=== PATIENT | female | born 2000 | race Caucasian/White ===

== ENCOUNTER 2019-03-11 09:34 | Emergency (ER) | payer SELFPAY ==
[~2019-03-11] VITALS: Ht 165.1 cm; Wt 68.0 kg
--- NOTE | 2019-03-11 09:37 | NUR ---
BIB SELF. AAO X4 C/O FREQUENCY, URGENCY, HESITANCY, AND BLOOD NOTED UPON WIPING X 3 DAYS AWOKE TODAY WITH LOWER ABDOMINAL PAIN RADIATING TO MID LOWER BACK 8/10 PAIN. PT DENIES FEVER, N/V/D, SOB. PT STATES SHE TOOK AZO OTC UTI MEDS WITH NO RELIEF. ER TO EVALUATE PT.
--- NOTE | 2019-03-11 09:37 | NUR ---
PT TO ER BED 3
--- NOTE | 2019-03-11 09:37 | NUR ---
ptambulated to er bed 03
[2019-03-11 09:43] VITALS: BP 117/66
--- NOTE | 2019-03-11 10:09 | NUR ---
DR MCMILLAN AT BEDSIDE FOR PT EVALUATION
[2019-03-11 10:21] VITALS: BP 118/68
== END 2019-03-11 15:47 | disposition home or self-care (01) ==
LOC: MED 09:34
DX: N39.0 Urinary tract infection, site not specified (principal)
CPT/HCPCS: 81002; 81025; 99283

== ENCOUNTER 2019-06-04 20:40 | Emergency (ER) | payer MEDICAID ==
[~2019-06-04] VITALS: Ht 165.1 cm; Wt 82.6 kg
[2019-06-04 20:51] VITALS: BP 119/85
--- NOTE | 2019-06-04 20:54 | NUR ---
PT WHEEL CHAIR ASSISTED TO BED 12.
[2019-06-04] MEDS ORDERED: KETOROLAC 60 MG/2 ML VIAL IM ONE (21:00)
--- NOTE | 2019-06-04 21:03 | NUR ---
XRAY AT BEDSIDE
--- NOTE | 2019-06-04 21:10 | NUR ---
PT CAME TO ER C/O OF RIGHT KNEE PAIN SINCE TODAY. PT IS TEARFUL AND CRYING IN PAIN. PT STATED "I WAS REACHING UP AND I TWISTED, AND I HEARD A "POP" IN MY KNEE AND I FELL." PAIN LEVEL 10/10 WITH MOVEMENT AND RADIATES TO HER TOES. PT HAS SWELLING TO LEFT KNEE. NKA. NO MED HX. SAFETY MEASURES IN PLACE. WAITING FOR ERMD TO EVALUATE PT.
[2019-06-04] MEDS ORDERED: MORPHINE SULFATE 4 MG/ML SYR IM ONE (22:00)
--- NOTE | 2019-06-04 22:08 | NUR ---
KNEE IMMOBILIZER PLACED ON PT R KNEE AND FITTED TO PT HEIGHT. +CSM
--- NOTE | 2019-06-04 22:10 | NUR ---
PT GIVEN INSTRUCTION ON PROPER USE OF CRUTCHES. PT CRUTCHES FITTED TO PT HEIGHT AND ARM LENGTH. PT GIVEN INSTRUCTION ON PROPER USE OF CRUTCHES, INCLUDING SITTING TO STANDING AND VICE VERSA, AND WALKING. PT DEMONSTRATED SAFE USE FOR APPROXIMATELY 40 FEET, PT STATED SHE FELT COMFORTABLE WITH USE.
--- NOTE | 2019-06-04 22:19 | NUR ---
Patient discharged with v/s stable. Written and verbal after care instructions given and explained. Pt educated to rest, ice, and elevate extremity. Patient alert, oriented and verbalized understanding of instructions. Ambulatory with crutches and steady gait. All questions addressed prior to discharge. ID band removed. Patient advised to follow up with PMD. Rx of MOTRIN AND NORCO WAS given. Patient educated on indication of medication including possible reaction and side effects. Opportunity to ask questions provided and answered.
[2019-06-04 22:26] VITALS: BP 119/85
== END 2019-06-04 22:19 | disposition home or self-care (01) ==
LOC: MED 20:40
DX: S83.91XA Sprain of unspecified site of right knee, initial encounter (principal); X50.1XXA Overexertion from prolonged static or awkward postures, initial encounter; Y93.01 Activity, walking, marching and hiking; Y92.89 Other specified places as the place of occurrence of the external cause; Y99.8 Other external cause status
CPT/HCPCS: 29505; 73562; 96372; 99283; J1885; J2270; Q0092

== ENCOUNTER 2020-08-08 18:00 | Emergency (ER) | payer MEDICAID ==
[~2020-08-08] VITALS: Ht 165.1 cm; Wt 70.3 kg
[2020-08-08 18:07] VITALS: BP 133/79
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
[2020-08-08] MEDS ORDERED: ONDANSETRON 4 MG ODT PO ONE (19:00)
[2020-08-08] MEDS ORDERED: LIDOCAINE MPF 1% 10 MG/ML VIAL INJ ONE (19:00)
[2020-08-08] MEDS ORDERED: KETOROLAC 30 MG/ML VIAL IM ONE (19:00)
[2020-08-08 19:03] VITALS: BP 130/75
--- NOTE | 2020-08-08 19:30 | NUR ---
REPORT RECEIVED FROM YEIMY ROBLES DAYSHIFT NURSE AT BEDSIDE FOR CONTINUITY OF CARE, PT IN STABLE CONDITION. NO C/O VOICED BY PT.
--- NOTE | 2020-08-08 19:31 | NUR ---
Pt report given to MARGARET Solis. Transfer of care at this time.
[2020-08-08] MEDS ORDERED: BACITRACIN OINT 500 UNITS/GM PKT TP ONE (19:45)
--- NOTE | 2020-08-08 19:58 | NUR ---
BACITRACIN WAS PLACED ON PTS FINGER, NON ADHERENT GAUZE WAS PLACED TO COVER WOUND AND ROLL GAUZE TO WRAP WOUND. PTS PMSC WNL.
--- NOTE | 2020-08-08 20:14 | NUR ---
Patient discharged with v/s stable. Written and verbal after care instructions given and explained. Patient alert, oriented and verbalized understanding of instructions. Ambulatory with steady gait. All questions addressed prior to discharge. ID band removed. Patient advised to follow up with PMD. Rx of naprosyn and bacitracin given. Patient educated on indication of medication including possible reaction and side effects. Opportunity to ask questions provided and answered.
--- NOTE | 2020-08-08 20:15 | NUR ---
Note claudia in EDM - 08/09/20 at 0404 by JONI PT DICHARGED WITH SCRIPTS OF BACITRACIN AND NAPROSN. FINGER BANDGED UP WITH DRESSINGS INTACT. PT PROVIDED EDUCATION REGARDING DX, AND ORDERED SCRIPTS. PT VERBELIZED UNDERSTANING. PT LEFT WITH BELONGINGS IN HAND AND WRIST BAND OFF.
== END 2020-08-08 20:14 | disposition home or self-care (01) ==
LOC: MED 18:00
DX: S61.303A Unspecified open wound of left middle finger with damage to nail, initial encounter (principal); R11.2 Nausea with vomiting, unspecified; X58.XXXA Exposure to other specified factors, initial encounter; Y93.89 Activity, other specified; Y92.89 Other specified places as the place of occurrence of the external cause; Y99.8 Other external cause status
CPT/HCPCS: 11730; 96372; 99284; J1885; J2001; Q0162; 99283

== ENCOUNTER 2021-02-12 13:11 | Inpatient (IN) | payer OTHER, SELFPAY ==
[~2021-02-12] VITALS: Ht 165.1 cm; Wt 67.1 kg
[2021-02-12 13:20] VITALS: BP 105/56
--- NOTE | 2021-02-12 13:26 | NUR ---
Patient ambulated to bed 4. RN evaluating the patient at bedside.
--- NOTE | 2021-02-12 14:20 | NUR ---
20 YEAR OLD FEMALE C/C OF ABDOMINAL PAIN AND BACK PAIN X 3 DAYS, DENIES DOING ANYTHING THAT CAUSED THE PAIN, VOMITED X 1 TIME BEFORE COMING INTO THE HOSPITAL. A&OX3 SPEAKING IN FULL SENTENCES, STATES THAT SHE WAS TOLD 10 WEEKS AGO THAT SHE IS PREGO, AT CLINIC SHE HAD A POSITIVE TEST 10 WEEKS AGO. DENIES SEEING OBGYN AT THIS TIME. - BLEEDING OR DISCHARGE. -SOB, -CP, -SOLIS, - DIZZINESS.
--- NOTE | 2021-02-12 14:30 | NUR ---
PT AMBULATED WITH NO ASSISTANCE TO THE BATHROOM
[2021-02-12 14:53] LABS: APPEARANCE,URINE CLEAR (CLEAR); BILIRUBIN,URINE NEGATIVE (NEGATIVE); BLOOD, URINE TRACE-I (NEGATIVE); COLOR,URINE YELLOW (YELLOW); HEMOGLOBIN 13.2 g/dL (12.0-16.0); LEUKOCYTE ESTERASE ,URINE 2+ (NEGATIVE); MEAN CORPUSCULAR HEMOGLOBIN 32 pg (27-31); MEAN CORPUSCULAR HGB CONC 34 g/dL (33-37); MEAN CORPUSCULAR VOLUME 95.4 fL (80-94); NITRITE, URINE NEGATIVE (NEGATIVE); PLATELET COUNT (AUTO) 251 K/uL (140-450); RED BLOOD CELL COUNT(AUTO) 4.09 MIL/uL (4.20-5.40); RED CELL DISTRIBUTION WIDTH 12.7 % (11.6-13.7); UGLUCOSE NEGATIVE (NEGATIVE); WHITE BLOOD COUNT (AUTO) 15.3 K/uL (4.8-10.8)
--- NOTE | 2021-02-12 15:00 | NUR ---
ULTRASOUND AT BEDSIDE
[2021-02-12 15:07] LABS: ALBUMIN 3.1 g/dL (3.4-5.0); ANION GAP 9.9 (8-16); CARBON DIOXIDE 28.8 mmol/L (21-32); CREATININE 0.4 mg/dL (0.6-1.3); POTASSIUM 3.7 mmol/L (3.5-5.1); TOTAL BILIRUBIN 0.3 mg/dL (0.0-1.0)
[2021-02-12 15:27] LABS: WBC,URINE 16-25 (MOD) /HPF (0-5)
[2021-02-12 15:40] LABS: EOSINOPHILS % (MANUAL) 1 % (0-4); LYMPHOCYTES % (MANUAL) 11 % (20-46); MONOCYTES % (MANUAL) 5 % (5-12)
--- NOTE | 2021-02-12 16:44 | NUR ---
Dr. Coles is evaluating the patient at bedside.
[2021-02-12] MEDS ORDERED: ACETAMINOPHEN 325 MG TAB PO ONE (16:50)
[2021-02-12] MEDS ORDERED: diphenhydrAMINE 50 MG/ML VIAL IVP ONE (16:50)
[2021-02-12] MEDS ORDERED: cefTRIAXone 1,000 MG VIAL ONE (17:22)
[2021-02-12] MEDS ORDERED: NACL 0.9% 1,000 ML IV ONE (17:25)
--- NOTE | 2021-02-12 19:03 | NUR ---
ADILIA AT BEDSIDE, APPROVED BY CHARGE
--- NOTE | 2021-02-12 19:20 | NUR ---
RECEIVED BEDSIDE ENDORSEMENT FROM AM SHIFT RN. PT IS AAOX4, ON ROOM AIR, BOYFRIEND AT BEDSIDE, NO DISTRESS, DENIES PAIN, AMBULATORY, SAFETY MEASURES IN PLACE, PLAN OF CARE DISCUSSED, WILL CONTINUE TO MONITOR.
[2021-02-12] MEDS: NACL 0.9% 1,000 ML IV SCH (20:31)
[2021-02-12 22:00] VITALS: BP 105/62
--- NOTE | 2021-02-12 22:00 | NUR ---
PT TRANSFERED TO THE [facility] DEPT VIA WHEELCHAIR, STABLE, TO BED 105 A. DERRELL ROBLES WAS THERE AND MET THE PATIENT.
--- NOTE | 2021-02-12 22:00 | NUR ---
ADMITTED A 20F FROM ER. CAME BY WHEELCHAIR. MED SURG PT. AWAKE,ALERT AND ORIENTED X4. AMBULATORY. WITH CC OF ABDOMINAL PAIN WITH N/V X3 DAYS. PT IS ALSO . HX: HIGH CHOLESTEROL. SKIN INTACT. WITH IVF INFUSING WELL ON THE RT AC G#18. CLEAR AND PATENT. ORIENTED TO HOSPITAL ROUTINES. FREQ ROUNDS NEEDED. BED ON LOW POSITION. CALL LIGHT WITHIN REACH. PLAN OF CARE DISCUSSED AND VERBALIZED UNDERSTANDING. SHE SAID SHE HAS ALLERGY TO NYLON WITH SWELLING AND PUS ON LIPS SEVERE REACTION. ALLERGY BAND IN PLACED. INSTRUCTED TO USE CALL LIGHT IF NEED ASSISTANCE. WILL F/U ADMIT ORDERS.
--- NOTE | 2021-02-12 22:01 | NUR ---
PT C/O RT SIDE ABDOMINAL PAIN. SHE SAID SHE LIKE THE [place] FOR PAIN IS MORE. MEDICATED ORDERED. Addendum: 02/14/21 at 0040 by Coral Banegas RN CANCEL ABOVE NOTES. WRONG DOCUMENTATION.
[2021-02-12] MEDS: HYDROcodone/APAP 5/325 MG 1 TAB TAB PO PRN (23:03)
--- NOTE | 2021-02-13 00:30 | NUR ---
MADE ROUNDS PT IS ASLEEP NO S/S FO ANY DISCOMFORT NOTED.
--- NOTE | 2021-02-13 01:30 | NUR ---
CHECKED ON PT. SLEEPING AT THIS TIME. NO S/S OF ANY DISCOMFORT.
--- NOTE | 2021-02-13 03:00 | NUR ---
MADE ROUNDS.PT IS AWAKE AND NO C/O ANY DISCOMFORT NOR PAIN NOTED.
[2021-02-13 04:00] VITALS: BP 95/52
--- NOTE | 2021-02-13 05:00 | NUR ---
CHECKED ON PT. ASLEEP. NO S/S OF ANY PAIN NOTED. WILL CONTINUE TO MONITOR.
--- NOTE | 2021-02-13 07:20 | NUR ---
ENDORSED PT IN STABLE CONDITION TO AM NURSE FOR CONTINUITY OF CARE.
--- NOTE | 2021-02-13 07:21 | NUR ---
RECEIVED PATIENT FROM NIGHT NURSE. PATIENT IN BED AWAKE, ALERT AND ORIENTED X4. RESP EVEN AND UNLABORED ON ROOM AIR. PATIENT C/O PAIN TO RIGHT FLANK, REQUESTING ADDITIONAL INFORMATION ABOUT PAIN MEDICATIONS PRIOR TO TAKING. WILL CONSULT WITH DR KRUSE AND PHARMACY. PATIENT VERBALIZED UNDERSTANDING. RAC 18G INFUSING WELL. PLAN OF CARE DISCUSSED, PATIENT VERBALIZED UNDERSTANDING. CALL LIGHT WITHIN REACH. WILL CONTINUE TO MONITOR.
[2021-02-13 08:00] VITALS: BP 103/65
[2021-02-13] MEDS: NACL 0.9% 1,000 ML IV SCH ×2 (08:43→21:30)
[2021-02-13 08:58] LABS: BASOPHILS % (AUTO) 0.3 % (0.0-2.0); EOSINOPHILS # (AUTO) 0.1 K/uL (0-0.4); EOSINOPHILS % (AUTO) 0.9 % (0.0-4.0); HEMATOCRIT 38.3 % (36-48); HEMOGLOBIN 13.1 g/dL (12.0-16.0); LYMPHOCYTES # (AUTO) 1.2 K/uL (2.5-16.5); LYMPHOCYTES % (AUTO) 10.1 % (20.5-51.1); MEAN CORPUSCULAR HEMOGLOBIN 33 pg (27-31); MEAN CORPUSCULAR HGB CONC 34 g/dL (33-37); MEAN CORPUSCULAR VOLUME 95.9 fL (80-94); MONOCYTES # (AUTO) 0.6 K/uL (0.8-1.0); MONOCYTES % (AUTO) 5.2 % (1.7-9.3); NEUTROPHILS # (AUTO) 10.2 K/uL (1.8-7.7); NEUTROPHILS % (AUTO) 83.5 % (42.2-75.2); PLATELET COUNT (AUTO) 267 K/uL (140-450); RED BLOOD CELL COUNT(AUTO) 3.99 MIL/uL (4.20-5.40); RED CELL DISTRIBUTION WIDTH 12.6 % (11.6-13.7); WHITE BLOOD COUNT (AUTO) 12.2 K/uL (4.8-10.8)
--- NOTE | 2021-02-13 09:00 | NUR ---
PATIENT IN BED AWAKE, ALERT AND ORIENTED X4. DR KRUSE AT BEDSIDE DISCUSSING PLAN OF CARE. ALL QUESTIONS ANSWERED. PATIENT VERBALIZED UNDERSTANDING. PATIENT C/O PAIN TO RIGHT FLANK RADIATING TO BACK. C/O NAUSEA AND UNABLE TO EAT BREAKFAST. WILL MEDICATE APPROPRIATELY. CALL LIGHT WITHIN REACH. WILL CONTINUE TO MONITOR.
[2021-02-13 09:23] LABS: ANION GAP 15.1 (8-16); CARBON DIOXIDE 23.3 mmol/L (21-32); CREATININE 0.5 mg/dL (0.6-1.3); POTASSIUM 3.4 mmol/L (3.5-5.1); TOTAL BILIRUBIN 0.4 mg/dL (0.0-1.0)
[2021-02-13] MEDS: ONDANSETRON 4 MG/2 ML VIAL IVP PRN ×2 (09:23→21:27)
--- NOTE | 2021-02-13 09:58 | NUR ---
ZOFRAN GIVEN FOR NAUSEA. PATIENT TEACHING PROVIDED. PATIENT VERBALIZED UNDERSTANDING. NO NOTED DISTRESS AT THIS TIME. CALL LIGHT WITHIN REACH. WILL CONTINUE TO MONITOR.
--- NOTE | 2021-02-13 11:10 | NUR ---
RECEIVED ORDER FOR CONSULTATION WITH DR AKERS FOR OBGYN. ORDER READBACK AND CARRIED OUT.
--- NOTE | 2021-02-13 13:14 | NUR ---
DR AKERS MADE AWARE OF POTASSIUM 3.4, RECEIVED TELEPHONE ORDER TO GIVE KDUR 40MEQ PO X1. ORDER READ BACK CONFIRMED AND CARRIED OUT.
[2021-02-13] MEDS ORDERED: POTASSIUM CHLORIDE 10 MEQ TABER PO ONE (13:15)
--- NOTE | 2021-02-13 14:40 | NUR ---
PATIENT WANTED TO SHOWER. OK PER DR KRUSE. PATIENT AMBULATED TO THE SHOWER WITH STEADY GAIT. CALL LIGHT FOR ASSIST MADE AWARE NEEDED FOR HELP. PATIENT VERBALIZED UNDERSTANDING.
--- NOTE | 2021-02-13 15:21 | NUR ---
PATIENT CAME BACK FROM SHOWER, AMBULATING WITH STEADY GAIT. NO NOTED DISTRESS. CALL LIGHT WITHIN REACH. WILL CONTINUE TO MONITOR.
[2021-02-13 16:00] VITALS: BP 111/61
[2021-02-13] MEDS: ACETAMINOPHEN 325 MG TAB PO PRN (16:15)
--- NOTE | 2021-02-13 16:21 | NUR ---
PATIENT GIVEN TYLENOL FOR RIGHT FLANK PAIN. PATIENT SITTING UP IN BED WATCHING TV. RESP EVEN AND UNLABORED. ABLE TO MAKE NEEDS KNOWN. CALL LIGHT WITHIN REACH. WILL CONTINUE TO MONITOR.
--- NOTE | 2021-02-13 17:53 | NUR ---
PATIENT IN BED EATING DINNER. PAIN AT TOLERABLE LEVEL. RESP EVEN AND UNLABORED ON ROOM AIR. ROUTINE MEDICATION GIVEN. CALL LIGHT WITHIN REACH. WILL CONTINUE TO MONITOR.
--- NOTE | 2021-02-13 19:19 | NUR ---
ENDORSED PATIENT TO NIGHT NURSE. PATIENT IN STABLE CONDITION.
[2021-02-13 20:00] VITALS: BP 111/63
--- NOTE | 2021-02-13 21:27 | NUR ---
C.O NAUSEA. MEDICATED WITH ZOFRAN IVP. WILL CONTINUE TO MONITOR.
[2021-02-13] MEDS: HYDROcodone/APAP 5/325 MG 1 TAB TAB PO PRN (22:01)
--- NOTE | 2021-02-13 22:01 | NUR ---
PT C/O RT SIDE ABDOMINAL PAIN. THIS TIME SHE SAID, SHE LIKE THE NORCO FOR PAIN IS MORE. MEDICATED ORDERED
--- NOTE | 2021-02-14 00:30 | NUR ---
AWAKE, NO C/O ANY PAIN AT THIS TIME. WILL CONTINUE TO MONITOR
--- NOTE | 2021-02-14 02:00 | NUR ---
CHECKED ON PT. SLEEPING AT THIS TIME. NO S/S OF ANY DISCOMFORT NOTED.
[2021-02-14 04:00] VITALS: BP 95/53
--- NOTE | 2021-02-14 04:00 | NUR ---
CHECKED ON PT. NO C/O PAIN AT THIS TIME.
--- NOTE | 2021-02-14 06:05 | NUR ---
PT REFUSED THIS MORNING BLOOD DRAW. JOB DEVELOPER TO COME BACK AND TRY AGAIN LATER .
--- NOTE | 2021-02-14 07:30 | NUR ---
ENDORSED PT IN STABLE CONDITION TO AM NURSE.
--- NOTE | 2021-02-14 07:35 | NUR ---
RECEIVED BEDSIDE ENDORSEMENT FROM NIGHTSMAFT NURSE FOR CONTINUITY OF CARE.
[2021-02-14 08:00] VITALS: BP 97/55
--- NOTE | 2021-02-14 09:02 | NUR ---
PATIENT HAS BEEN SCREENED AND CATEGORIZED HIGH NUTRITION RISK. PATIENT WILL BE SEEN WITHIN 1-2 DAYS OF ADMISSION. RECEIVED REFERRAL FOR NAUSEA AND VOMITING >3 DAYS 02/14/[address]
[2021-02-14] MEDS: ACETAMINOPHEN 325 MG TAB PO PRN ×3 (09:30→20:01)
[2021-02-14] MEDS: ONDANSETRON 4 MG/2 ML VIAL IVP PRN (09:31)
--- NOTE | 2021-02-14 09:35 | NUR ---
ADMINISTERED PRN MEDS FOR 6/10 PAIN AND NAUSEA ORDERED BY MD. PATIENT TOLERATED WELL. MEDICATION EDUCATION PROVIDED. PATIENT VERBALIZED UNDERSTANDING. PATIENT SHOWS NO SIGNS OF DISTRESS. LAYING IN BED WATCHING TELEVISION AND TALKING ON CELL PHONE. ADVISED PATIENT WILL PROVIDE UPDATES RECEIVED BY MD. SAFETY MEASURES IN PLACE. WILL CONTINUE TO MONITOR.
[2021-02-14] MEDS ORDERED: POTASSIUM CHLORIDE 10 MEQ TABER PO SCH (11:30)
[2021-02-14] MEDS: NACL 0.9% 1,000 ML IV SCH (12:06)
--- NOTE | 2021-02-14 12:08 | NUR ---
ADMINISTERED PRESCRIBED MEDS PER MD ORDER. PATIENT TOLERATED WELL. MEDICATION EDUCATION PROVIDED. PATIENT VERBALIZED UNDERSTANDING. PATIENT DENIES PAIN AT THE MOMENT. STATES FEELING TIRED W/ LOW APPETITE. SAFETY MEASURES IN PLACE. WILL CONTINUE TO MONITOR.
--- NOTE | 2021-02-14 14:00 | NUR ---
02/14/21 RD INITIAL ASSESSMENT COMPLETED PLEASE REFER TO NUTRITION ASSESSMENT UNDER CARE ACTIVITY FOR ESTIMATED NUTRITIONAL NEEDS. 1. RECOMMEND BLAND/SOFT DIET 2. RECOMMEND VITAMINS ONCE DAILY 3. RD PROVIDED HEALTHY NUTRITION EDUCATION. PT ACCEPTED. 4. RD TO FOLLOW-UP 3-5 DAYS, MODERATE RISK MIN [address]ERMAN, RD
--- NOTE | 2021-02-14 15:13 | NUR ---
ADMINISTERED PRESCRIBED MED FOR PRN 5/10 PAIN. PATIENT TOLERATED WELL. MEDICATION EDUCATION PROVIDED, PATIENT VERBALIZED UNDERSTANDING. PATIENT INDEPENDENTLY TOOK SHOWER, SAFETY MEASURES IN PLACE. WILL CONTINUE TO MONITOR.
--- NOTE | 2021-02-14 15:22 | NUR ---
RECEIVED TORB FOR BLAND DIET AND VITAMIN SUPPLEMENTS FROM DR. FORD.
[2021-02-14 16:00] VITALS: BP 107/70
--- NOTE | 2021-02-14 17:43 | NUR ---
ADMINISTERED PRESCRIBED MEDS PER MD ORDER. PATIENT TOLERATED WELL, MEDICATION EDUCATION PROVIDED. PATIENT VERBALIZED UNDERSTANDING. SAFETY MEASURES IN PLACE. WILL CONTINUE TO MONITOR.
--- NOTE | 2021-02-14 19:15 | NUR ---
RECEIVED BEDSIDE REPORT FROM DAY SHIFT NURSE, MELODY ROBLES, FOR CONTINUITY OF CARE. PT IS AWAKE AND ALERT. A&OX4. SITTING UP IN THE BED ON CELL PHONE. ANSWERS QUESTIONS APPROPRIATELY. ON RA WITH BREATHING UNLABORED. AMBULATORY INDEPENDENTLY. SKIN IS WARM, DRY, AND INTACT. IV IS IN THE RIGHT AC 18 GAUGE RUNNING NS AT 75 ML/HR PER ORDER. PT IS STABLE. WILL CONTINUE TO MONITOR.
--- NOTE | 2021-02-14 19:18 | NUR ---
ENDORSED PATIENT TO NIGHTSHIFT NURSE FOR CONTINUITY OF CARE.
[2021-02-14 20:00] VITALS: BP 104/62
--- NOTE | 2021-02-14 20:01 | NUR ---
PT STATES SHE HAS MILD PAIN IN THE RUQ REGION OF THE ABDOMEN. PT WAS GIVEN TYLENOL REQUESTED. WILL CONTINUE TO MONITOR.
[2021-02-14] MEDS: PYRIDOXINE 50 MG TAB PO SCH (20:02)
--- NOTE | 2021-02-14 21:00 | NUR ---
FAMILY IS OUTSIDE THE WINDOW VISITING PT WITH HER CONSENT. FOOD WAS DROPPED OFF FOR PT. SHE DENIES ANY PAIN AT THIS TIME. ALSO DENIES ANY NAUSEA OR VOMITING. PT IS STABLE.
--- NOTE | 2021-02-14 22:50 | NUR ---
PT IS SITTING UP IN BED ON CELL PHONE. NO DISTRESS NOTED. IV FLUIDS ARE INFUSING AND IV IS PATENT. NO INFILTRATION OF THE IV NOTED. PT DENIES PAIN AT THIS TIME. WILL CONTINUE TO MONITOR.
[2021-02-15] MEDS: NACL 0.9% 1,000 ML IV SCH (00:31)
--- NOTE | 2021-02-15 00:39 | NUR ---
IV WAS ALARMING. IV WAS FLUSHED AND PATENT. IV FLUIDS ARE NOW INFUSING. PT DENIES ANY NAUSEA OR VOMITING. PT DENIES PAIN. WILL CONTINUE TO MONITOR.
--- NOTE | 2021-02-15 02:10 | NUR ---
PT WAS ASLEEP BUT AWOKE EASILY BY NOISE. PT STATES SHE IS "NOT NAUSEOUS AND DOES NOT HAVE PAIN RIGHT NOW". IV IS PATENT AND INTACT. BREATHING IS UNLABORED ON RA. WILL CONTINUE TO MONITOR.
--- NOTE | 2021-02-15 03:59 | NUR ---
ROUNDED ON PT. SHE IS STABLE AT THIS TIME. NO PAIN OR DISTRESS NOTED. BREATHING IS UNLABORED. IV FLUIDS ARE INFUSING. CALL LIGHT WITHIN REACH. WILL CONTINUE TO MONITOR.
[2021-02-15 04:00] VITALS: BP 95/56
--- NOTE | 2021-02-15 06:00 | NUR ---
PT IS AWAKE AND ALERT. A&OX4. DENIES PAIN. DENIES N/V. PT IS GOING BACK TO SLEEP. BREATHING IS UNLABORED. PT IS STABLE.
--- NOTE | 2021-02-15 07:10 | NUR ---
ENDORSED PT TO DAY SHIFT NURSE FOR CONTINUITY OF CARE. PT IS STABLE AT THIS TIME. PLAN OF CARE DISCUSSED.
--- NOTE | 2021-02-15 07:15 | NUR ---
RECEIVED REPORT FORM CARD MAKER NURSE. PATIENT ALERT AND ORIENTED X 4. PATIENT IS SLEEPING NOW AT BED RESPIRATION EVEN AND UNLABORED AT ROOM AIR. IV SITE RAC 18 G. IVF@75ML/H .SKIN INTACT . BED IN LOWER POSITION. CALL LIGHT WITHIN REACH. PT IS STABLE AT THIS TIME.WILL CONTINUE TO MONITOR PATIENT
[2021-02-15] MEDS ORDERED: MULTIVIT/MIN/CA/FE/FA 1 TAB PO SCH (09:00)
--- NOTE | 2021-02-15 09:00 | NUR ---
SCHEDULE MEDICATION GIVEN PER MD ORDERED. TYLENOL 650 GIVEN PER PATIENT C/O PAIN ON RIGHT FLANK 03/17, PATIENT TOLERATED WELL. WILL CONTINUE TO MONITOR PATIENT
[2021-02-15] MEDS: ACETAMINOPHEN 325 MG TAB PO PRN (09:38)
[2021-02-15] MEDS: PYRIDOXINE 50 MG TAB PO SCH (09:38)
--- NOTE | 2021-02-15 11:20 | NUR ---
PT IS RESTING AND TALKING ON HER CP, NO SIGN OF DISTRESS NOTED.
--- NOTE | 2021-02-15 13:40 | NUR ---
DR. FORD CAME TO THE PT'S ROOM AND SPOKE TO PT, PT RESPONDING APPROPRIATELY AND VERBALIZED UNDERSTANDING
--- NOTE | 2021-02-15 13:59 | NUR ---
YOAN DOUGH MAKER: SCHEDULED PATIENT A FOLLOW UP APPOINTMENT WITH OB ON March AT 1:00 PM. SCHEDULED PATIENT A FOLLOW UP APPOINTMENT WITH PCP NANCY CHOW [id number] [place] [address]. February AT 8:30 AM Addendum: 02/15/21 at 1655 by Diamond Cade CM YOAN DOUGH MAKER: RECEIVED ORDER FOR OUT PATIENT UROLOGIST FOLLOW UP. FAXED TO [facility].
[2021-02-15] MEDS ORDERED: NITR100C7 PO (14:37)
[2021-02-15] MEDS ORDERED: DOXY1TCP PO (14:37)
[2021-02-15] MEDS ORDERED: PYRI-218 PO (14:37)
--- NOTE | 2021-02-15 16:26 | NUR ---
DISCHARGED PT TO HOME ACCOMPANIED BY GRANDFATHER, DISCHARGED TEACHINGS AND INSTRUCTIONS GIVEN TO PT AND VERBALIZED UNDERSTANDING. IV LINE AND ARM BAND REMOVED AND PT IS STABLE AT THIS TIME.
== END 2021-02-15 16:26 | disposition home or self-care (01) | DRG 566 ==
LOC: MED 13:11 → MTU 19:57
PROVIDERS: ADMIT Internal Medicine; ATTEND Internal Medicine
DX: O21.0 Mild hyperemesis gravidarum (principal); N13.6 Pyonephrosis; O23.01 Infections of kidney in pregnancy, first trimester; E87.6 Hypokalemia; Z20.822 Contact with and (suspected) exposure to COVID-19; O99.281 Endocrine, nutritional and metabolic diseases complicating pregnancy, first trimester; Z3A.12 12 weeks gestation of pregnancy
CPT/HCPCS: 36415; 76705; 76770; 76801; 80053; 81001; 84702; 85025; 87081; 87086; 96365; 96375; 99285; J0696; J1200; J2405; J7030; J7060

== ENCOUNTER 2022-02-17 19:05 | Emergency (ER) | payer MEDICAID, OTHER ==
[~2022-02-17] VITALS: Ht 165.1 cm; Wt 79.8 kg
[~2022-02-17 19:05] MED LIST: DOXY1TCP PO; NITR100C7 PO; PYRI-218 PO
[2022-02-17 19:31] VITALS: BP 103/74
[2022-02-17 21:42] LABS: BASOPHILS % (AUTO) 0.4 % (0.0-2.0); EOSINOPHILS % (AUTO) 0.3 % (0.0-4.0); HEMATOCRIT 39.8 % (36-48); HEMOGLOBIN 13.3 g/dL (12.0-16.0); LYMPHOCYTES % (AUTO) 14.5 % (20.5-51.1); MEAN CORPUSCULAR HEMOGLOBIN 30 pg (27-31); MEAN CORPUSCULAR HGB CONC 33 g/dL (33-37); MEAN CORPUSCULAR VOLUME 88.7 fL (80-94); MONOCYTES # (AUTO) 1.4 K/uL (0.8-1.0); NEUTROPHILS # (AUTO) 10.5 K/uL (1.8-7.7); NEUTROPHILS % (AUTO) 74.8 % (42.2-75.2); PLATELET COUNT (AUTO) 291 K/uL (140-450); RED BLOOD CELL COUNT(AUTO) 4.49 MIL/uL (4.20-5.40); RED CELL DISTRIBUTION WIDTH 15.3 % (11.6-13.7)
[2022-02-17 21:59] LABS: APPEARANCE,URINE CLOUDY (CLEAR); BILIRUBIN,URINE NEGATIVE (NEGATIVE); BLOOD, URINE 2+ (NEGATIVE); COLOR,URINE YELLOW (YELLOW); LEUKOCYTE ESTERASE ,URINE 2+ (NEGATIVE); NITRITE, URINE POSITIVE (NEGATIVE); UGLUCOSE NEGATIVE (NEGATIVE)
[2022-02-17 22:03] LABS: ALBUMIN 3.5 g/dL (3.4-5.0); ANION GAP 14.4 (8-16); CARBON DIOXIDE 24.6 mmol/L (21-32); CREATININE 0.7 mg/dL (0.6-1.3); TOTAL BILIRUBIN 0.4 mg/dL (0.0-1.0)
[2022-02-17 22:42] LABS: RBC,URINE 0-5 /HPF (0-5); WBC,URINE TOO MANY TO COUNT /HPF (0-5)
--- NOTE | 2022-02-17 23:15 | NUR ---
21 Y/O FEMALE BIBS FROM HOME, C/O ABD PAIN X5 DAYS. PT STATES THAT SHE HAS BILATERAL PAIN IN HER ANT/POST SIDES THAT COMES/GOES, 10/10 SHARP PAIN. +N/V, CONSTANT HEADACHE. PT REPRTS A FEVER OF 101 AT HOME YESTERDAY. PT STATES SHE IS WEAK AND HUNGRY BECAUSE SHE IS NOT ABLE TO KEEP ANY FOOD DOWN. PT SEATED IN BED WITH HOB RAIDED AND I NLOWEST SETTING, RAIL UP X1. HX: KIDNEY INFECTION 02/25 NKA DENIES MEDS
[2022-02-17] MEDS ORDERED: cephALEXin 500 MG CAP PO ONE (23:20)
[2022-02-17] MEDS ORDERED: IBUPROFEN 800 MG TAB PO ONE (23:20)
[2022-02-17] MEDS ORDERED: CEPH500C16 PO ×2 (23:22→23:54)
[2022-02-17] MEDS ORDERED: ONDANSETRON 4 MG TAB PO ONE (23:40)
[2022-02-17] MEDS ORDERED: ONDA-188 SL (23:40)
[2022-02-17] MEDS ORDERED: POTASSIUM CHLORIDE 10 MEQ TABER PO ONE (23:45)
[2022-02-17 23:55] VITALS: BP 103/74
--- NOTE | 2022-02-17 23:57 | NUR ---
DC Patient discharged with v/s stable. Written and verbal after care instructions given and explained. Patient alert, oriented and verbalized understanding of instructions. Ambulatory with steady gait. All questions addressed prior to discharge. ID band removed. Patient advised to follow up with PMD. Rx of ZOFRAN AND KEFLEX given. Patient educated on indication of medication including possible reaction and side effects. Opportunity to ask questions provided and answered. VSS, A/OX4, UNLABORED BREATHING, AMBULATORY, AND CALM DEMEANOR.
== END 2022-02-17 23:49 | disposition home or self-care (01) ==
LOC: MED 19:05
DX: N39.0 Urinary tract infection, site not specified (principal); Z79.899 Other long term (current) drug therapy; Z79.2 Long term (current) use of antibiotics; Z91.048 Other nonmedicinal substance allergy status
CPT/HCPCS: 36415; 80053; 81001; 81025; 83690; 85025; 87086; 99284; Q0162

== ENCOUNTER 2023-11-25 12:16 | Emergency (ER) | payer MEDICAID, OTHER ==
[~2023-11-25] VITALS: Ht 165.1 cm; Wt 61.2 kg
[~2023-11-25 12:16] MED LIST changes: +CEPH500C16 PO; +ONDA-188 SL
[2023-11-25 12:45] VITALS: BP 118/78; PULSE 108; RESP 20; TEMP 97.7; O2SAT 100
[2023-11-25 13:47] LABS: BASOPHILS % (AUTO) 0.3 % (0.0-2.0); EOSINOPHILS # (AUTO) 0.2 K/uL (0-0.4); EOSINOPHILS % (AUTO) 1.5 % (0.0-4.0); HEMATOCRIT 36.1 % (36-48); HEMOGLOBIN 12.5 g/dL (12.0-16.0); LYMPHOCYTES # (AUTO) 1.7 K/uL (2.5-16.5); LYMPHOCYTES % (AUTO) 13.3 % (20.5-51.1); MEAN CORPUSCULAR HEMOGLOBIN 32 pg (27-31); MEAN CORPUSCULAR HGB CONC 35 g/dL (33-37); MEAN CORPUSCULAR VOLUME 92.7 fL (80-94); MONOCYTES # (AUTO) 1.3 K/uL (0.8-1.0); MONOCYTES % (AUTO) 10.3 % (1.7-9.3); NEUTROPHILS # (AUTO) 9.5 K/uL (1.8-7.7); NEUTROPHILS % (AUTO) 74.6 % (42.2-75.2); PLATELET COUNT (AUTO) 269 K/uL (140-450); RED CELL DISTRIBUTION WIDTH 12.6 % (11.6-13.7); WHITE BLOOD COUNT (AUTO) 12.8 K/uL (4.8-10.8)
[2023-11-25 13:48] VITALS: O2SAT 100
[2023-11-25 13:54] LABS: BILIRUBIN,URINE NEGATIVE (NEGATIVE); BLOOD, URINE 1+ (NEGATIVE); COLOR,URINE YELLOW (YELLOW); LEUKOCYTE ESTERASE ,URINE 1+ (NEGATIVE); NITRITE, URINE NEGATIVE (NEGATIVE); PROTEIN,URINE NEGATIVE (NEGATIVE); UGLUCOSE NEGATIVE (NEGATIVE); UROBILINOGEN,URINE 0.2 EU/dL (0.2 - 1)
[2023-11-25 13:56] LABS: RBC,URINE 0-5 /HPF (0-5)
[2023-11-25 13:57] LABS: APPEARANCE,URINE SLIGHTLY CLOUDY (CLEAR)
[2023-11-25 13:58] LABS: WBC,URINE 0-5 /HPF (0-5)
[2023-11-25 14:06] LABS: BACTERIA,URINE 1+ /HPF (None Seen); SQUAMOUS EPITHELIAL CELL,UR 0-3 (FEW) /LPF (0-3 (FEW))
[2023-11-25 14:11] LABS: ANION GAP 11.4 (8-16); CALCIUM 8.1 mg/dL (8.5-10.1); CARBON DIOXIDE 28.8 mmol/L (21-32); CREATININE 0.6 mg/dL (0.6-1.3); POTASSIUM 3.2 mmol/L (3.5-5.1); TOTAL BILIRUBIN 0.2 mg/dL (0.0-1.0); TOTAL PROTEIN, SERUM 8.4 g/dL (6.4-8.2)
[2023-11-25] MEDS: NACL 0.9% 1,000 ML IV ONE (15:32)
[2023-11-25] MEDS: KETOROLAC 30 MG/ML VIAL IVP ONE (15:36)
[2023-11-25] MEDS ORDERED: CEPH-588 PO (17:14)
[2023-11-25] MEDS ORDERED: NAPR-54 PO (17:14)
[2023-11-25 17:28] VITALS: BP 118/78; PULSE 108; RESP 20; TEMP 97.7; O2SAT 100
== END 2023-11-25 17:28 | disposition home or self-care (01) ==
LOC: MED 12:16
DX: R10.32 Left lower quadrant pain (principal); R11.2 Nausea with vomiting, unspecified; R50.9 Fever, unspecified; Z79.899 Other long term (current) drug therapy
CPT/HCPCS: 36415; 74177; 80053; 81001; 81025; 85025; 87086; 96361; 96374; 99285; J1885; J7030; Q9967